=== PATIENT | male | born 1995 | race Caucasian/White ===

== ENCOUNTER 2016-11-14 02:45 | Emergency (ER) | payer OTHER ==
[~2016-11-14] VITALS: Ht 182.9 cm; Wt 84.1 kg
[~2016-11-14 02:45] MED LIST: ULTRAM 50MG TAB50 MG PO
[2016-11-14 02:46] VITALS: BP 130/93; TEMP 99.5
[2016-11-14 05:16] VITALS: PULSE 79
== END 2016-11-14 05:16 | disposition home or self-care (01) ==
LOC: COL.ER 02:45
DX: S01.01XA Laceration without foreign body of scalp, initial encounter (principal); S01.111A Laceration without foreign body of right eyelid and periocular area, initial encounter; S00.83XA Contusion of other part of head, initial encounter; Y09 Assault by unspecified means; Y92.007 Garden or yard of unspecified non-institutional (private) residence as the place of occurrence of the external cause; S61.411A Laceration without foreign body of right hand, initial encounter; F10.129 Alcohol abuse with intoxication, unspecified; Y90.9 Presence of alcohol in blood, level not specified
CPT/HCPCS: J1885